=== PATIENT | female | born 1960 | race Caucasian/White ===

== ENCOUNTER 2023-03-07 13:13 | Outpatient (REF) | payer OTHER, SELFPAY ==
[2023-03-07 14:47] LABS: C Reactive Protein < 0.10 mg/dL (< or = 0.50)
[2023-03-07 15:12] LABS: Erythrocyte Sedimentation Rate 10 MM/HR (0-20)
[2023-03-15 15:53] LABS: Anti Nuclear Antibody Screen POSITIVE (NEGATIVE); Anti Nuclear Antibody Titer 1:40 titer
== END 2023-03-07 13:14 | disposition home or self-care (01) ==
LOC: HO.LAB 13:13
PROVIDERS: Visit Provider Psychiatry & Neurology Neurology
DX: G44.229 Chronic tension-type headache, not intractable (principal)
CPT/HCPCS: 36415; 85652; 86038; 86039; 86140

== ENCOUNTER 2023-03-16 11:55 | Outpatient (REF) | payer OTHER, SELFPAY ==
--- NOTE | ~2023-03-16 | XR_ITS ---
EXAMINATION: XR CHEST CLINICAL INFORMATION: Meningitis COMPARISON: None available. TECHNIQUE: 2 views of the chest were obtained. FINDINGS: There is no vascular congestion, airspace consolidation, or effusion. The costophrenic sulci are clear. The heart is normal in size. The vascularity is normal. The hilar and mediastinal contours are normal. There is a gentle dextrocurvature midthoracic spine. XR/XR chest 2V IMPRESSION: Unremarkable examination.
== END 2023-03-16 11:56 | disposition home or self-care (01) ==
LOC: HO.XRAY 11:55
PROVIDERS: PCP Internal Medicine; Visit Provider Psychiatry & Neurology Neurology
DX: G03.9 Meningitis, unspecified (principal)
CPT/HCPCS: 71046

== ENCOUNTER 2023-04-28 14:36 | Outpatient (REF) | payer OTHER, SELFPAY ==
[2023-05-03 02:58] LABS: Arsenic, 24H Urine <10 mcg/L (<=80); Cadmium, 24H Urine <0.5 mcg/L (<=5.0); Lead, 24H Urine <10 mcg/L (<80); Mercury, 24H Urine <4 mcg/L (<=20)
== END 2023-04-28 14:37 | disposition home or self-care (01) ==
LOC: HO.LNP 14:36
PROVIDERS: Visit Provider Psychiatry & Neurology Neurology
DX: R51.9 Headache, unspecified (principal)
CPT/HCPCS: 82175; 82300; 83655; 83825